=== PATIENT | male | born 1970 | race Caucasian/White ===

== ENCOUNTER 2022-01-19 18:01 | Emergency (ER) | payer MEDICAID ==
[~2022-01-19] VITALS: Ht 165.1 cm; Wt 89.0 kg
[2022-01-19 18:25] VITALS: BP 131/80
[2022-01-19] MEDS ORDERED: GABAPENTIN 300MG CAPSULE PO STA (19:39)
[2022-01-19] MEDS ORDERED: GABA-290 MT (19:42)
[2022-01-19] MEDS ORDERED: BUTA1CAP47 MT (19:42)
[2022-01-19] MEDS ORDERED: BUTALBITAL/ACETAMINOPHEN/CAFFEINE 50/325/40MG TABLET PO ONE (19:45)
[2022-01-19] MEDS ORDERED: SUMA50TA16 MT (19:58)
== END 2022-01-19 20:09 | disposition left against medical advice (07) ==
LOC: ER 18:01
DX: G43.909 Migraine, unspecified, not intractable, without status migrainosus (principal)
CPT/HCPCS: 99281